=== PATIENT | female | born 1990 | race African-American/Black ===

== ENCOUNTER 2020-11-03 11:22 | Emergency (ER) | payer MEDICAID, OTHER ==
[~2020-11-03] VITALS: Ht 170.2 cm; Wt 64.9 kg
[2020-11-03 11:24] VITALS: BP 115/88
[2020-11-03 13:24] LABS: Basophils # (auto) 0 10 ^3/uL (0-0.2); Basophils % (auto) 0.4 % (0.0-2.0); Eosinophils # (auto) 0.1 10 ^3/uL (0-0.8); Eosinophils % (auto) 1.3 % (0.0-7.0); Hematocrit 35.5 % (36.0-46.0); Hemoglobin 12.1 g/dL (12.2-16.2); Lymphocytes # (auto) 1.4 10 ^3/uL (0.4-5.4); Lymphocytes % (auto) 32.9 % (10.0-50.0); Mean Corpuscular Hemoglobin 30.6 pg (28.0-32.0); Mean Corpuscular Hgb Conc. 34.2 g/dL (32.0-36.0); Mean Corpuscular Volume 89.4 fL (80.0-100.0); Monocytes # (auto) 0.5 10 ^3/uL (0-1.3); Monocytes % (auto) 11.6 % (0.0-12.0); Neutrophils # (auto) 2.3 10 ^3/uL (1.6-8.6); Neutrophils % (auto) 53.8 % (37.0-80.0); Nucleated Red Blood Cells % 0.1 %; Platelet Count (auto) 230 10^3/uL (140-450); Red Blood Cells 3.97 10^6/uL (4.0-5.20); Red Cell Distribution Width 14.7 % (11.8-14.3); White Blood Cell 4.3 10^3/uL (4.4-10.8)
[2020-11-03 13:42] LABS: Albumin 4.1 g/dL (3.4-5.0); Calcium 8.9 mg/dL (8.5-10.1); Potassium 4.3 mmol/L (3.5-5.1)
[2020-11-03 13:47] LABS: BUN/Creatinine Ratio 13.2; Bilirubin, Total 0.5 mg/dL (0.2-1.0); Total Protein 8.7 g/dL (6.4-8.2)
== END 2020-11-03 20:23 | disposition left against medical advice (07) ==
LOC: ER 11:22
DX: R11.2 Nausea with vomiting, unspecified (principal); Z53.21 Procedure and treatment not carried out due to patient leaving prior to being seen by health care provider
CPT/HCPCS: 36415; 80053; 85025

== ENCOUNTER 2023-06-17 22:41 | Emergency (ER) | payer MEDICAID ==
[~2023-06-17] VITALS: Ht 172.7 cm; Wt 63.6 kg
[2023-06-18 00:08] VITALS: BP 140/84; TEMP 97.9
[2023-06-18 00:18] VITALS: PULSE 94; RESP 15; O2SAT 94
[2023-06-18] MEDS ORDERED: CEPH500C PO (00:18)
== END 2023-06-18 00:22 | disposition home or self-care (01) ==
LOC: ER 22:41
DX: L03.116 Cellulitis of left lower limb (principal); Z79.2 Long term (current) use of antibiotics

== ENCOUNTER 2023-11-29 16:19 | Emergency (ER) | payer MEDICAID ==
[~2023-11-29] VITALS: Ht 170.2 cm; Wt 74.9 kg
[~2023-11-29 16:19] MED LIST: CEPH500C PO
[2023-11-29 17:05] VITALS: BP 130/85; PULSE 115; RESP 16; O2SAT 100
[2023-11-29] MEDS ORDERED: KETOROLAC TROMETH 30 MG/ML 1ML VIAL IM ONE (17:30)
[2023-11-29] MEDS ORDERED: IBUP-1454 PO (19:26)
== END 2023-11-29 23:01 | disposition home or self-care (01) ==
LOC: ER 16:19
DX: M25.562 Pain in left knee (principal); Z79.899 Other long term (current) drug therapy; X50.1XXA Overexertion from prolonged static or awkward postures, initial encounter; Y93.23 Activity, snow (alpine) (downhill) skiing, snowboarding, sledding, tobogganing and snow tubing; Y92.89 Other specified places as the place of occurrence of the external cause; Y99.8 Other external cause status
CPT/HCPCS: 29505; 73700